=== PATIENT | female | born 1995 | race Caucasian/White ===

== ENCOUNTER 2021-10-29 08:57 | Day surgery (SDC) | payer BC ==
[~2021-10-29] VITALS: Ht 167.6 cm; Wt 71.5 kg
[2021-10-29] MEDS ORDERED: ISIBLOOM 28 DA1 EACH PO (10:21)
[2021-10-29 10:34] VITALS: BP 136/98; PULSE 104; TEMP 97.4
[2021-10-29 12:45] VITALS: BP 111/69; PULSE 89; TEMP 97.2
[2021-10-29 13:00] VITALS: BP 110/44; PULSE 89
[2021-10-29 13:15] VITALS: BP 114/67; PULSE 90
[2021-10-29 13:30] VITALS: BP 137/55; PULSE 89
--- NOTE | 2021-10-29 13:52 | NUR ---
1245 Pt returns from endo procedure via cart and RN assist to [facility]. Pt ambulates from cart to recliner with RN assist. Monitors on and alarms set. Call light within reach. Report received from EVELIO Ko. Pt alert and oriented. Pt requests muffin and juice. Pt denies any pain or nausea. present in room 1300 Pt taking food and drink well. No complications noted. 1348 Discharge instructions given to pt and . All questions answered to their satisfaction. Handed to pt are a thank you card and discharge information. 1352 Pt transferred out of the hospital via wheelchair and [place] assist, to private vehicle driven by .
== END 2021-10-29 13:52 | disposition home or self-care (01) ==
LOC: SDCO 08:57
DX: K63.5 Polyp of colon (principal); K92.1 Melena; K59.00 Constipation, unspecified; K62.89 Other specified diseases of anus and rectum; K57.30 Diverticulosis of large intestine without perforation or abscess without bleeding; K21.9 Gastro-esophageal reflux disease without esophagitis; Z79.899 Other long term (current) drug therapy; Z80.0 Family history of malignant neoplasm of digestive organs
CPT/HCPCS: J2704; J7030